=== PATIENT | female | born 1965 | race Caucasian/White ===

== ENCOUNTER → 2019-10-17 | Outpatient (REF) | payer OTHER | LOC: M LAB 18:15 | PROVIDERS: ATTEND Nurse Practitioner Adult Health | DX: Z02.1 Encounter for pre-employment examination (principal) ==

== ENCOUNTER → 2022-12-22 | Outpatient (CLI) | payer OTHER, BC | LOC: M WUC 08:58 | PROVIDERS: ATTEND Internal Medicine | DX: M25.559 Pain in unspecified hip (principal) ==